=== PATIENT | female | born 1985 | race Caucasian/White ===

== ENCOUNTER 2019-09-09 17:50 | Emergency (ER) | payer OTHER ==
--- NOTE | 2019-09-09 19:05 | UC ---
Back Pain HPI - HPI Summary HPI Summary: 34-year-old female presenting with pain in tailbone and mid back since 08/21/2019 after she states she fell backwards off of her sons hoverboard. Patient notes swelling and bruising of tailbone at first that has since subsided. States pain has not improved though. States tailbone and back pain worse with prolonged sitting. Denies radiating pain. Denies numbness and tingling. Denies difficulty ambulating. Denies bowel and bladder incontinence. - History of Current Complaint Chief Complaint: UCBackPain Stated Complaint: BACK PAIN Hx Obtained From: Patient Hx Last Menstrual Period: 08/18/19 Pain Intensity: 5 Pain Scale Used: 0-10 Numeric - Allergies/Home Medications Allergies/Adverse Reactions: Allergies Allergy/AdvReac Type Severity Reaction Status Date / Time No Known Allergies Allergy Verified 09/09/19 18:38 Home Medications: Home Medications Atorvastatin* [Lipitor 20 MG*] 1 tab PO DAILY 09/09/19 [History Confirmed ] Ibuprofen TAB* [Motrin TAB* 800 MG] 1 tab PO ONCE 09/09/19 [History Confirmed ] Lisinopril TAB* [Prinivil TAB 10 MG*] 1 tab PO DAILY 09/09/19 [History Confirmed 09/09/19] Venlafaxine HCl [Venlafaxine HCl ER] 1 tab PO DAILY 09/09/19 [History Confirmed 09/09/19] PMH/Surg Hx/FS Hx/Imm Hx Endocrine History: Dyslipidemia Cardiovascular History: Hypertension - Surgical History Surgical History: Yes Surgery Procedure, Year, and Place: T&A age 4 - Family History Known Family History: Positive: Non-Contributory - Social History Alcohol Use: Occasionally Substance Use Type: None Smoking Status (MU): Never Smoked Tobacco Review of Systems All Other Systems Reviewed And Are Negative: No Constitutional: Positive: Negative Skin: Positive: Negative Respiratory: Positive: Negative Cardiovascular: Positive: Negative Neurovascular: Positive: Negative Musculoskeletal: Positive: Arthralgia - mid/lower back pain. Negative: Decreased ROM, Edema Neurological: Positive: Negative. Negative: Paresthesia, Numbness Physical Exam - Summary Physical Exam Summary: Vital Signs Reviewed: Yes A+Ox3, no distress Eyes: Conjunctiva Clear ENT: Hearing grossly normal neck: supple Respiratory: Positive: No respiratory distress, No accessory muscle use Cardiovascular: skin color reflect adequate perfusion Musculoskeletal Exam: ROMERO x 4 without difficulty, no tenderness to palpation of lumbarsacral or thoracic spine. no erythema, ecchymosis, or rash. no edema. strength intact, ROM intact, sensation grossly intact Neurological: Positive: Alert, ambulatory without difficulty Psychological: Positive: age appropriate behavior Skin: Positive: no rash, no ecchymosis Vital Signs: Initial Vital Signs Temp 98.7 F 09/09/19 18:39 Pulse 88 09/09/19 18:39 Resp 16 09/09/19 18:39 BP 150/94 09/09/19 18:39 Pulse Ox 100 09/09/19 18:39 Diagnostics - Radiology lumbarsacral Radiology Interpretation Completed By: ED Physician Summary of Radiographic Findings: neg fx thoracic Radiology Interpretation Completed By: ED Physician Summary of Radiographic Findings: neg fx Back Pain Course/Dx - Course Course Of Treatment: Discussed initial negative read of radiographs with patient and informed her that final report will be obtained in the morning and she will be notified with any abnormalities. Instructed to continue with symptomatic treatment and follow up with pcp or ortho for persistent or worsening symptoms. Patient voiced understanding and agreed with treatment plan. - Differential Dx/Diagnosis Differential Diagnosis/HQI/PQRI: Arthritis, Fracture, Herniated Disc, Strain, Sprain Provider Diagnosis: Acute low back pain due to trauma Discharge ED - Sign-Out/Discharge Documenting (check all that apply): Patient Departure All imaging exams completed and their final reports reviewed: No - Discharge Plan Condition: Stable Disposition: HOME Patient Education Materials: Acute Low Back Pain (ED), Lower Back Exercises (ED ) Referrals: Radha Rai NP [Primary Care Provider] - If Needed Andres Mario MD [Medical Doctor] - If Needed Additional Instructions: As discussed, your radiograph was reviewed by the provider that treated you tonight. It will be read by a radiologist tomorrow morning. If there is a finding other than that discussed with you today, you will receive a call from a care provider. Rest, ice and/or apply heat to help alleviate pain symptoms. Use over the counter pain medications as directed for pain relief. Refrain from strenuous physical activity until pain has resolved. Follow up with your primary care provider or the orthopedic referral as listed below if pain persists or worsens. - Billing Disposition and Condition Condition: STABLE Disposition: Home - Attestation Statements Provider Attestation: This patient was not seen by me. I was available for consult. Chart reviewed. ISABELA
[2019-09-09 20:49] VITALS: BP 149/94
--- NOTE | 2019-09-10 08:51 | UC ---
- Progress Note Progress Note: Reviewed Dr. Can's radiology reports: no fracture seen in either lumbar or thoracic spine. No change in management based on reports, which are consistent with wet read. Course/Dx - Diagnoses Provider Diagnoses: Acute low back pain due to trauma Discharge ED - Sign-Out/Discharge Documenting (check all that apply): Patient Departure All imaging exams completed and their final reports reviewed: Yes - Discharge Plan Condition: Stable Disposition: HOME Patient Education Materials: Acute Low Back Pain (ED), Lower Back Exercises (ED ) Referrals: Andres Mario MD [Medical Doctor] - If Needed Radha Rai NP [Primary Care Provider] - If Needed Additional Instructions: As discussed, your radiograph was reviewed by the provider that treated you tonight. It will be read by a radiologist tomorrow morning. If there is a finding other than that discussed with you today, you will receive a call from a care provider. Rest, ice and/or apply heat to help alleviate pain symptoms. Use over the counter pain medications as directed for pain relief. Refrain from strenuous physical activity until pain has resolved. Follow up with your primary care provider or the orthopedic referral as listed below if pain persists or worsens. - Billing Disposition and Condition Condition: STABLE Disposition: Home
== END 2019-09-09 21:04 | disposition home or self-care (01) ==
LOC: UCCORT 17:50
DX: M54.5 Low back pain (principal); I10 Essential (primary) hypertension; W18.30XA Fall on same level, unspecified, initial encounter; Y92.9 Unspecified place or not applicable; Z79.899 Other long term (current) drug therapy
CPT/HCPCS: 72070; 72110; 99212; G0463